=== PATIENT | male | born 1955 | race Caucasian/White ===

== ENCOUNTER 2017-11-11 11:39 | Day surgery (SDC) | payer BC ==
[2017-11-06 09:46] VITALS: BMI 30.1
[~2017-11-11 11:39] MED LIST: LACTATED RINGERS 1,000 ML IV SCH; LIDOCAINE 1% 20 ML VIAL (10MG/ML) FOR IV START INTRADERMA PRN
[2017-11-11 12:22] VITALS: RESP 18; TEMP 97.6
[2017-11-11] MEDS ORDERED: PROPOFOL 10 MG/ML 20 ML VIAL IV ONE (13:52)
[2017-11-11] MEDS ORDERED: fentaNYL (PF) 50 MCG/ML 2 ML AMP ONE (13:52)
[2017-11-11] MEDS ORDERED: MIDAZOLAM 2 MG/2 ML VIAL ONE (13:52)
--- NOTE | 2017-11-11 14:47 | P.PCN ---
Date of Procedure: 11/11/17 Procedure(s) Performed: Procedure: Colonoscopy and polypectomy. Preoperative diagnosis: Screening for neoplasia. Postoperative diagnosis: 1. Sigmoid diverticulosis with no evidence of acute diverticulitis or strictures. 2. Multiple polyps snared from the cecum, hepatic flexure, transverse colon and sigmoid but no large polyps or cancer. Preparation: HalfLytely prep. Sedation: Was provided by anesthesia. Brief clinical history: The patient is a 61-year-old male who was scheduled for this evaluation for screening for neoplasia. There is family history of colon cancer and the patient has history of polyps. His last exam was around 6 years ago. He is not having any abdominal complaints, bleeding or anemia. Procedure: With the patient on his left lateral decubitus position and after informed consent and adequate sedation, the perianal area was inspected and it did not show any fissures or fistulas. There were no masses felt on digital rectal examination. The Olympus CFQ 160L video colonoscope was then inserted in the rectum in the usual fashion and advanced to the cecum. There were 4 polyps that were snared and retrieved by suction but there were no large polyps or cancer. One polyp was in the cecum, one around the hepatic flexure, one in the proximal transverse colon and one in the distal sigmoid. They measured between 1 and 2 cm. There were multiple diverticular orifices seen scattered in the sigmoid but there was no evidence of acute diverticulitis or strictures. The patient tolerated the procedure well. Plan: The patient was reassured. Discussed dietary measures. I am recommending repeat exam in 3-5 years.
[2017-11-11 15:02] VITALS: BP 140/82; PULSE 68
== END 2017-11-11 15:23 | disposition home or self-care (01) ==
LOC: ORWHC2ENDO 11:39
DX: Z12.11 Encounter for screening for malignant neoplasm of colon (principal); D12.0 Benign neoplasm of cecum; D12.3 Benign neoplasm of transverse colon; D12.5 Benign neoplasm of sigmoid colon; Z86.010 Personal history of colon polyps; Z80.0 Family history of malignant neoplasm of digestive organs; K57.30 Diverticulosis of large intestine without perforation or abscess without bleeding; I10 Essential (primary) hypertension; E78.5 Hyperlipidemia, unspecified; M10.9 Gout, unspecified; Z79.82 Long term (current) use of aspirin; Z79.899 Other long term (current) drug therapy
CPT/HCPCS: 88305; 45385; J2250; J3010; J2704